=== PATIENT | female | born 1990 | race Two or more races ===

== ENCOUNTER 2018-10-30 11:05 | Emergency (ER) | payer OTHER ==
[~2018-10-30] VITALS: Ht 154.9 cm; Wt 40.8 kg
[2018-10-30] MEDS ORDERED: AMOX500C PO (11:58)
--- NOTE | 2018-10-30 11:59 | PHYS DOC ---
Past Medical History Past Medical History: No Pertinent History Past Surgical History: No Surgical History Alcohol Use: None Drug Use: None Adult General Chief Complaint Chief Complaint: EARACHE/EAR PAIN HPI HPI Patient is a 28 year old female who presents with pain to the left ear that awoke her this morning. She denies any recent illness. She denies fever or congestion. She has not tried [id number] pain relievers. Review of Systems Review of Systems Constitutional: Denies fever or chills [] Eyes: Denies change in visual acuity, redness, or eye pain [] HENT: See history of present illness Respiratory: Denies cough or shortness of breath [] Cardiovascular: No additional information not addressed in HPI [] Neurologic: Denies headache, focal weakness or sensory changes [] Endocrine: Denies polyuria or polydipsia [] All other systems were reviewed and found to be within normal limits, except as documented in this note. Current Medications Current Medications Current Medications Medications (Trade) Dose Ordered Sig/Brown Start Time Stop Time Status Last Admin Dose Admin Acetaminophen (Tylenol) 1,000 mg 1X ONCE 10/30/18 12:00 10/30/18 12:01 DC 10/30/18 12:05 1,000 MG Allergies Allergies Allergies Coded Allergies Type Severity Reaction Last Updated Verified No Known Drug Allergies 10/30/18 No Physical Exam Physical Exam Constitutional: Well developed, well nourished, no acute distress, non-toxic appearance. [] HENT: Normocephalic, atraumatic, left tympanic membrane is erythematous, right tympanic membrane is normal, oropharynx moist, no oral exudates, nose normal. [] Eyes: PERRLA, EOMI, conjunctiva normal, no discharge. [] Neck: Normal range of motion, no tenderness, supple, no stridor. [] Cardiovascular:Heart rate regular rhythm, no murmur [] Lungs & Thorax: Bilateral breath sounds clear to auscultation [] Abdomen: Bowel sounds normal, soft, no tenderness, no masses, no pulsatile masses. [] Skin: Warm, dry, no erythema, no rash. [] Back: No tenderness, no CVA tenderness. [] Extremities: No tenderness, no cyanosis, no clubbing, ROM intact, no edema. [] Neurologic: Alert and oriented X 3, normal motor function, normal sensory function, no focal deficits noted. [] Psychologic: Affect normal, judgement normal, mood normal. [] Current Patient Data Vital Signs Vital Signs Date Time Temp Pulse Resp B/P (MAP) Pulse Ox O2 Delivery O2 Flow Rate FiO2 10/30/18 11:30 97.9 76 16 114/76 (89) 100 Room Air 97.9 EKG EKG [] Radiology/Procedures Radiology/Procedures [] Course & Med Decision Making Course & Med Decision Making Pertinent Labs and Imaging studies reviewed. (See chart for details) [] Dragon Disclaimer Dragon Disclaimer This electronic medical record was generated, in whole or in part, using a voice recognition dictation system. Departure Departure Impression: Primary Impression: Otitis media Disposition: HOME, SELF-CARE Condition: STABLE Patient Instructions: Otitis Media, Adult Additional Instructions: Take medication as directed. You may use ibuprofen or Tylenol for pain or fever. Follow-up with your primary care provider for recheck in 4 days if not improving or return to the emergency department if worsening. Scripts Amoxicillin (AMOXICILLIN) 500 Mg Capsule 2 CAP PO BID for otitis media, #40 CAP Prov: BRENDAN ORTIZ APRN 10/30/18 BRENADN ORTIZ APRN Oct 30, 2018 11:59
[2018-10-30] MEDS ORDERED: ACETAMINOPHEN 500 MG TABLET PO ONE (12:00)
[2018-10-30 12:18] VITALS: BP 116/76
== END 2018-10-30 12:22 | disposition home or self-care (01) ==
LOC: ER 11:05
DX: H66.92 Otitis media, unspecified, left ear (principal)
CPT/HCPCS: 99283